=== PATIENT | male | born 1985 | race Caucasian/White ===

== ENCOUNTER → 2019-11-11 06:38 | Outpatient (CLI) | payer OTHER, SELFPAY ==
--- NOTE | 2019-11-11 | DI.MRI.S_ITS ---
PROCEDURE: MR FOOT RT WO CON INDICATIONS: Unspecified injury of right foot, initial encounte TECHNIQUE: Noncontrast sagittal T1 spin echo and T2 fast spin echo with fat saturation, long-axis T1 spin echo and T2 fast spin echo with fat saturation, short-axis T1 spin echo and T2 fast spin echo with fat saturation through the forefoot. COMPARISON: None. FINDINGS: Image quality: Excellent. Bones and joints: No bone marrow contusions or metatarsal stress fractures. The sesamoid bones appear in expected positions, without internal edema. No metatarsophalangeal joint degeneration. No intraosseous lesions. Soft tissues: There is edema involving medial portion of plantar foot muscles near calcaneous suggestive of muscle strain/low-grade partial-thickness tear. There is disruption involving medial and central portion of plantar aponeurosis near its plantar calcaneal insertion suggestive of partial tear involving plantar fascia. Visualized flexor and extensor tendons appear intact, without tenosynovitis. Medial and lateral ankle ligaments are grossly intact. The distal insertions of the peroneus brevis and longus tendons appear intact. The principal Lisfranc ligament appears intact. No soft tissue ganglion cysts or bursal fluid collections. Sagittal images demonstrate no evidence for plantar plate tears. IMPRESSION: 1. No marrow edema. No acute fracture or dislocation. 2. Suggestive of moderate grade partial-thickness tear involving plantar aponeurosis with focal area of full-thickness rupture involving medial and central portion of the plantar aponeurosis at its insertion out plantar calcaneus. Underlying plantar muscle strain/low-grade partial-thickness tear. 3. Rest of the ankle and foot tendons and ligaments are grossly intact. Dictated by: Kaushik Castillo M.D. on 11/11/2019 at 10:16 Approved by: Kaushik Castillo M.D. on 11/11/2019 at 11:30
== END ==
DX: S99.921A Unspecified injury of right foot, initial encounter (principal); X58.XXXA Exposure to other specified factors, initial encounter
CPT/HCPCS: 73718